=== PATIENT | female | born 1950 | race Native Hawaiian/Other Pacific Islander ===

== ENCOUNTER 2016-11-26 09:10 | Outpatient (CLI) | payer OTHER ==
[~2016-11-26 09:10] MED LIST: ALLEGRA ALRG180 M1 PO; AMBIEN5 MG PO; AMIT10TA21 PO; ASPIR-8181 MG PO; AZO STANDARD PO; BISACODYL LAXATI5 MG PO; CELE200C2 PO; CETI10TA PO; CYCL10TA35 PO; DOCU100C10 PO; DULO30CA PO; ESCITALOPRAM20 MG PO; FUROSEMIDE40 MG PO; MICRO-K10 MEQ PO; MORP30TA10 PO; NALTREXONE50 MG PO; ONDA4TAB3 PO; OXYC5TAB24 PO; SPIRONOLACT50 MG PO; URIBEL118 MG PO; ZANTAC 75 PO; ZOFRAN8 MG PO
== END 2016-11-26 22:57 | disposition home or self-care (01) ==
LOC: LABW 09:10
DX: R79.9 Abnormal finding of blood chemistry, unspecified (principal)
CPT/HCPCS: 36415; 83036

== ENCOUNTER 2016-12-04 08:17 | Outpatient (CLI) | payer OTHER | END 2016-12-04 19:42 | disposition home or self-care (01) | LOC: US 08:17 | DX: Z98.890 Other specified postprocedural states (principal); R11.2 Nausea with vomiting, unspecified; Z01.818 Encounter for other preprocedural examination ==

== ENCOUNTER 2017-04-07 11:18 | Emergency (ER) | payer OTHER ==
[~2017-04-07] VITALS: Ht 170.2 cm; Wt 90.7 kg
[2017-04-07 12:14] VITALS: BP 198/96; TEMP 97.6
[2017-04-07 13:12] LABS: PLATELET COUNT 315 K/uL (152-353)
[2017-04-07 13:20] LABS: POTASSIUM 3.7 mmol/L (3.6-5.2); SODIUM 137 mmol/L (136-145)
== END 2017-04-07 15:40 | disposition home or self-care (01) ==
LOC: ED 11:18
DX: E86.9 Volume depletion, unspecified (principal); K31.89 Other diseases of stomach and duodenum; R11.2 Nausea with vomiting, unspecified; R19.7 Diarrhea, unspecified
CPT/HCPCS: 80053; 82150; 83690; 85027; 96361; 96374; 96375; 96376; 99283; J2405; J2550; Q9963

== ENCOUNTER 2017-04-10 03:45 | Outpatient (CLI) | payer OTHER | END 2017-04-10 03:51 | disposition short-term general hospital (02) | LOC: AMB 03:45 | DX: S01.81XA Laceration without foreign body of other part of head, initial encounter (principal); W18.39XA Other fall on same level, initial encounter; Y92.091 Bathroom in other non-institutional residence as the place of occurrence of the external cause | CPT/HCPCS: A0425; A0429 ==

== ENCOUNTER 2017-04-10 03:53 | Emergency (ER) | payer OTHER ==
[~2017-04-10] VITALS: Ht 170.2 cm; Wt 90.7 kg
[2017-04-10 06:55] VITALS: BP 154/83; TEMP 98.3
== END 2017-04-10 07:00 | disposition home or self-care (01) ==
LOC: ED 03:53
PROC: 0HQ1XZZ Repair Face Skin, External Approach (ICD-10-PCS; principal; 2017-04-10)
DX: S01.81XA Laceration without foreign body of other part of head, initial encounter (principal); W01.190A Fall on same level from slipping, tripping and stumbling with subsequent striking against furniture, initial encounter; Y92.89 Other specified places as the place of occurrence of the external cause
CPT/HCPCS: 99283; J2001

== ENCOUNTER 2017-04-17 09:59 | Emergency (ER) | payer OTHER ==
[~2017-04-17] VITALS: Ht 170.2 cm; Wt 90.7 kg
[2017-04-17 10:00] VITALS: BP 147/82; TEMP 98
== END 2017-04-17 10:15 | disposition home or self-care (01) ==
LOC: ED 09:59
DX: Z48.02 Encounter for removal of sutures (principal)

== ENCOUNTER 2017-04-19 08:45 | Outpatient (CLI) | payer OTHER ==
[2017-04-19 11:22] LABS: SODIUM 139 mmol/L (136-145)
== END 2017-04-19 10:00 | disposition home or self-care (01) ==
LOC: LABW 08:45
PROVIDERS: Internal Medicine
DX: R60.0 Localized edema (principal); Z79.899 Other long term (current) drug therapy; E78.4 Other hyperlipidemia; Z51.81 Encounter for therapeutic drug level monitoring; D50.8 Other iron deficiency anemias
CPT/HCPCS: 36415; 80053; 80061; 83540; 83550; 84443; 85014

== ENCOUNTER 2017-06-04 14:20 | Emergency (ER) | payer OTHER ==
[~2017-06-04] VITALS: Ht 170.2 cm; Wt 90.7 kg
[2017-06-04 14:35] VITALS: TEMP 98
[2017-06-04 15:47] LABS: PLATELET COUNT 302 K/uL (152-353)
[2017-06-04 15:58] LABS: POTASSIUM 3.1 mmol/L (3.6-5.2); SODIUM 137 mmol/L (136-145)
[2017-06-04 16:19] LABS: PARTIAL THROMBOPLASTIN TIME 24.2 SECONDS (24.5-33.6)
[2017-06-04 16:30] VITALS: BP 150/67
== END 2017-06-04 16:45 | disposition home or self-care (01) ==
LOC: ED 14:20
DX: R00.2 Palpitations (principal); F41.8 Other specified anxiety disorders; I10 Essential (primary) hypertension; Z79.899 Other long term (current) drug therapy; Z51.81 Encounter for therapeutic drug level monitoring
CPT/HCPCS: 36415; 80053; 82550; 82553; 84484; 85027; 85610; 85730; 93005; 96374; 99284; J3490

== ENCOUNTER 2017-07-03 09:56 | Outpatient (CLI) | payer OTHER | END 2017-07-03 18:54 | disposition home or self-care (01) | LOC: RAD 09:56 → LABW 09:56 | DX: R00.0 Tachycardia, unspecified (principal); Z78.0 Asymptomatic menopausal state | CPT/HCPCS: 36415; 82533; 84439; 84443; 84481 ==

== ENCOUNTER 2017-07-04 16:28 | Outpatient (CLI) | payer OTHER ==
[2017-07-04 17:22] LABS: POTASSIUM 3.5 mmol/L (3.6-5.2)
== END 2017-07-04 19:03 | disposition home or self-care (01) ==
LOC: LAB 16:28
PROVIDERS: Internal Medicine
DX: R79.89 Other specified abnormal findings of blood chemistry (principal); Z79.899 Other long term (current) drug therapy; Z51.81 Encounter for therapeutic drug level monitoring; R00.0 Tachycardia, unspecified
CPT/HCPCS: 80048; 83735

== ENCOUNTER 2018-02-25 11:20 | Outpatient (CLI) | payer OTHER | END 2018-02-25 22:31 | disposition home or self-care (01) | LOC: MRI 11:20 | DX: M51.26 Other intervertebral disc displacement, lumbar region (principal); M51.36 Other intervertebral disc degeneration, lumbar region; M51.37 Other intervertebral disc degeneration, lumbosacral region; M47.816 Spondylosis without myelopathy or radiculopathy, lumbar region; M47.817 Spondylosis without myelopathy or radiculopathy, lumbosacral region; M47.896 Other spondylosis, lumbar region ==

== ENCOUNTER 2018-03-21 13:13 | Outpatient (CLI) | payer OTHER | END 2018-03-21 22:38 | disposition home or self-care (01) | LOC: CT 13:13 | DX: R10.2 Pelvic and perineal pain (principal); M53.3 Sacrococcygeal disorders, not elsewhere classified ==

== ENCOUNTER 2018-05-21 09:45 | Outpatient (CLI) | payer OTHER ==
[2018-05-21 10:49] LABS: POTASSIUM 3.9 mmol/L (3.6-5.2)
== END 2018-05-21 22:35 | disposition home or self-care (01) ==
LOC: LABW 09:45
PROVIDERS: Internal Medicine
DX: I10 Essential (primary) hypertension (principal); Z79.899 Other long term (current) drug therapy; Z51.81 Encounter for therapeutic drug level monitoring; E78.4 Other hyperlipidemia; Z12.11 Encounter for screening for malignant neoplasm of colon; E55.9 Vitamin D deficiency, unspecified; E61.1 Iron deficiency; E66.8 Other obesity
CPT/HCPCS: 36415; 80053; 80061; 82306; 82533; 83540; 83550; 83918; 84443; 85014

== ENCOUNTER 2018-06-18 10:40 | Outpatient (CLI) | payer OTHER ==
[2018-06-18 10:54] LABS: PLATELET COUNT 248 K/uL (152-353)
[2018-06-18 11:46] LABS: POTASSIUM 4.2 mmol/L (3.6-5.2)
[2018-06-18 12:09] LABS: PARTIAL THROMBOPLASTIN TIME 26.1 SECONDS (24.5-33.6)
== END 2018-06-18 23:59 | disposition home or self-care (01) ==
LOC: LABW 10:40
PROVIDERS: Nurse Practitioner Family
DX: G89.4 Chronic pain syndrome (principal); Z79.890 Hormone replacement therapy; Z51.81 Encounter for therapeutic drug level monitoring; Z79.891 Long term (current) use of opiate analgesic; F33.9 Major depressive disorder, recurrent, unspecified
CPT/HCPCS: 36415; 80053; 85027; 85610; 85730

== ENCOUNTER 2018-08-04 13:39 | Outpatient (CLI) | payer OTHER | END 2018-08-04 20:00 | disposition home or self-care (01) | LOC: MRI 13:39 | DX: M54.14 Radiculopathy, thoracic region (principal); M54.6 Pain in thoracic spine; M96.1 Postlaminectomy syndrome, not elsewhere classified ==

== ENCOUNTER 2018-12-04 09:21 | Outpatient (CLI) | payer OTHER ==
[2018-12-04 09:36] LABS: PLATELET COUNT 235 K/uL (152-353)
[2018-12-04 09:41] LABS: POTASSIUM 4.1 mmol/L (3.6-5.2)
== END 2018-12-04 23:16 | disposition home or self-care (01) ==
LOC: LABW 09:21
PROVIDERS: Internal Medicine
DX: D64.9 Anemia, unspecified (principal); I10 Essential (primary) hypertension; E61.1 Iron deficiency
CPT/HCPCS: 36415; 80048; 85027

== ENCOUNTER 2018-12-23 10:12 | Outpatient (CLI) | payer OTHER | END 2018-12-23 23:14 | disposition home or self-care (01) | LOC: LABW 10:12 | PROVIDERS: Internal Medicine | DX: D64.9 Anemia, unspecified (principal); E78.5 Hyperlipidemia, unspecified; I10 Essential (primary) hypertension; E87.70 Fluid overload, unspecified; E87.6 Hypokalemia; E61.1 Iron deficiency | CPT/HCPCS: 36415; 80061; 83540; 83550; 85018 ==

== ENCOUNTER 2019-07-02 06:51 | Emergency (ER) | payer OTHER ==
[~2019-07-02] VITALS: Ht 170.2 cm; Wt 86.2 kg
[2019-07-02 08:00] VITALS: BP 106/45; TEMP 98.2
== END 2019-07-02 08:10 | disposition home or self-care (01) ==
LOC: ED 06:51
DX: S40.011A Contusion of right shoulder, initial encounter (principal); W18.39XA Other fall on same level, initial encounter; Y92.89 Other specified places as the place of occurrence of the external cause
CPT/HCPCS: 99282; 99283

== ENCOUNTER 2019-07-27 13:24 | Outpatient (CLI) | payer OTHER ==
[2019-07-27 13:49] LABS: POTASSIUM 5.2 mmol/L (3.6-5.2)
== END 2019-07-27 23:13 | disposition home or self-care (01) ==
LOC: LABW 13:24
PROVIDERS: Orthopaedic Surgery Orthopaedic Surgery of the Spine
DX: Z01.89 Encounter for other specified special examinations (principal)
CPT/HCPCS: 36415; 80048; 93005

== ENCOUNTER 2019-09-23 08:42 | Outpatient (CLI) | payer OTHER ==
[2019-09-23 09:45] LABS: PLATELET COUNT 240 K/uL (152-353)
[2019-09-23 10:01] LABS: POTASSIUM 3.8 mmol/L (3.6-5.2)
== END 2019-09-23 20:09 | disposition home or self-care (01) ==
LOC: LABW 08:42
PROVIDERS: Internal Medicine
DX: D64.89 Other specified anemias (principal); G89.29 Other chronic pain; E78.49 Other hyperlipidemia; I10 Essential (primary) hypertension; E87.79 Other fluid overload; E61.1 Iron deficiency; E27.49 Other adrenocortical insufficiency; E66.9 Obesity, unspecified; I26.99 Other pulmonary embolism without acute cor pulmonale; E53.8 Deficiency of other specified B group vitamins; Z79.899 Other long term (current) drug therapy
CPT/HCPCS: 36415; 80053; 82306; 82533; 82728; 83036; 83540; 83550; 83918; 84439; 84443; 85027

== ENCOUNTER 2020-11-26 03:58 | Emergency (ER) | payer OTHER ==
[~2020-11-26] VITALS: Ht 170.2 cm; Wt 99.8 kg
[2020-11-26 03:58] VITALS: TEMP 97.8
[2020-11-26 06:25] VITALS: BP 128/54
== END 2020-11-26 06:25 | disposition home or self-care (01) ==
LOC: ED 03:58
PROC: 2W3DX1Z Immobilization of Left Lower Arm using Splint (ICD-10-PCS; principal; 2020-11-26)
DX: S52.592A Other fractures of lower end of left radius, initial encounter for closed fracture (principal); S52.612A Displaced fracture of left ulna styloid process, initial encounter for closed fracture; W01.0XXA Fall on same level from slipping, tripping and stumbling without subsequent striking against object, initial encounter; Y92.89 Other specified places as the place of occurrence of the external cause
CPT/HCPCS: 96372; 99283; J1885

== ENCOUNTER 2021-02-03 13:05 | Outpatient (CLI) | payer OTHER ==
[2021-02-03 13:31] LABS: PLATELET COUNT 283 K/uL (152-353)
== END 2021-02-03 19:23 | disposition home or self-care (01) ==
LOC: LABW 13:05
PROVIDERS: ATTEND Internal Medicine
DX: D64.9 Anemia, unspecified (principal); Z79.899 Other long term (current) drug therapy
CPT/HCPCS: 36415; 80053; 83036; 83540; 83550; 85027

== ENCOUNTER 2021-05-15 13:06 | Outpatient (CLI) | payer OTHER | END 2021-05-15 21:30 | disposition home or self-care (01) | LOC: CT 13:06 | PROVIDERS: ATTEND Orthopaedic Surgery | DX: M54.2 Cervicalgia (principal); M54.12 Radiculopathy, cervical region ==

== ENCOUNTER 2021-12-07 13:58 | Outpatient (CLI) | payer OTHER ==
[2021-12-07 15:14] LABS: POTASSIUM 4.1 mmol/L (3.6-5.2)
== END 2021-12-07 21:14 | disposition home or self-care (01) ==
LOC: LABW 13:58
PROVIDERS: ATTEND Internal Medicine
DX: E27.49 Other adrenocortical insufficiency (principal); E53.8 Deficiency of other specified B group vitamins; E78.49 Other hyperlipidemia; E87.70 Fluid overload, unspecified; E87.6 Hypokalemia; E61.1 Iron deficiency; D64.89 Other specified anemias; I51.89 Other ill-defined heart diseases; M85.80 Other specified disorders of bone density and structure, unspecified site; R00.0 Tachycardia, unspecified
CPT/HCPCS: 36415; 80048; 80061; 81000; 82306; 82728; 83540; 83550; 83921; 84443; 85018

== ENCOUNTER 2022-08-31 11:05 | Outpatient (CLI) | payer OTHER | END 2022-08-31 19:30 | disposition home or self-care (01) | LOC: LABW 11:05 | PROVIDERS: ATTEND Internal Medicine | DX: N30.90 Cystitis, unspecified without hematuria (principal) | CPT/HCPCS: 87086; 87088 ==

== ENCOUNTER 2022-12-11 13:46 | Outpatient (CLI) | payer OTHER | END 2022-12-11 23:23 | disposition home or self-care (01) | LOC: LABW 13:46 | PROVIDERS: ATTEND Internal Medicine | DX: N39.0 Urinary tract infection, site not specified (principal) | CPT/HCPCS: 81000; 87077; 87086; 87088; 87186 ==

== ENCOUNTER 2023-02-26 13:59 | Outpatient (CLI) | payer OTHER | END 2023-02-26 19:01 | disposition home or self-care (01) | LOC: CT 13:59 → MRI 13:59 → CT 19:01 | PROVIDERS: ATTEND Nurse Practitioner | DX: M54.16 Radiculopathy, lumbar region (principal); G89.4 Chronic pain syndrome ==

== ENCOUNTER 2023-03-14 09:09 | Outpatient (CLI) | payer OTHER ==
[2023-03-14 09:29] LABS: PLATELET COUNT 201 K/uL (152-353)
== END 2023-03-14 17:00 | disposition home or self-care (01) ==
LOC: LABW 09:09
PROVIDERS: ATTEND Internal Medicine
DX: E27.40 Unspecified adrenocortical insufficiency (principal); E53.8 Deficiency of other specified B group vitamins; E78.49 Other hyperlipidemia; E87.70 Fluid overload, unspecified; E87.6 Hypokalemia; E61.1 Iron deficiency; D64.89 Other specified anemias; G89.29 Other chronic pain; I51.89 Other ill-defined heart diseases; N30.90 Cystitis, unspecified without hematuria
CPT/HCPCS: 36415; 80048; 82533; 84443; 85027

== ENCOUNTER 2023-04-04 14:18 | Emergency (ER) | payer OTHER ==
[~2023-04-04] VITALS: Ht 170.2 cm; Wt 83.5 kg
[2023-04-04 14:18] VITALS: TEMP 98.6
[2023-04-04 14:54] LABS: PLATELET COUNT 264 K/uL (152-353)
[2023-04-04 15:04] VITALS: BP 74/36
[2023-04-04 15:05] LABS: POTASSIUM 4.2 mmol/L (3.6-5.2)
== END 2023-04-04 17:50 | disposition home or self-care (01) ==
LOC: ED 14:18
PROVIDERS: Family Medicine
DX: R42 Dizziness and giddiness (principal); M25.511 Pain in right shoulder; W19.XXXA Unspecified fall, initial encounter
CPT/HCPCS: 80053; 81002; 84484; 85027; 93005; 96361; 96374; 99284; J1100

== ENCOUNTER 2023-06-20 10:10 | Outpatient (CLI) | payer OTHER | END 2023-06-20 20:06 | disposition home or self-care (01) | LOC: CT 10:10 | PROVIDERS: ATTEND Nurse Practitioner | DX: M54.16 Radiculopathy, lumbar region (principal); G89.4 Chronic pain syndrome ==